=== PATIENT | female | born 1970 | race Caucasian/White ===

== ENCOUNTER → 2016-08-04 | Outpatient (CLI) | payer BC ==
--- NOTE | 2016-08-04 08:53 | MM ---
Reason for exam: clinical finding. Last mammogram was performed 1 year and 6 months ago. History: Patient is postmenopausal. Benign excisional biopsy of the right breast, November 19, 2001. Indicated problem(s): pain in the right breast. Physical Findings: Nurse did not find any significant physical abnormalities on exam. MG 3D Diag Mammo W/Cad FEL[facility] Bilateral CC and MLO view(s) were taken. Prior study comparison: January 20, 2015, bilateral MG screening mammo w CAD. The breast tissue is heterogeneously dense. This may lower the sensitivity of mammography. Chronic nodualrity inferior left breast. Asymmetric density lateral right CC view does not appear to persist on spot tomosynthesis. Otherwise no significant change. These results were verbally communicated with the patient and result sheet given to the patient on 08/04/16. ASSESSMENT: Incomplete: need additional imaging evaluation, BI-RAD 0 RECOMMENDATION: Ultrasound of the right breast. Targeted inferior right breast at site of pain and possible palpable area per the patient and from 6-12 o'clock for the lateral asymmetry. [facility]
--- NOTE | 2016-08-04 08:57 | USB ---
Reason for exam: additional evaluation requested from abnormal screening. History: Patient is postmenopausal. Benign excisional biopsy of the right breast, November 19, 2001. US Breast Limited RT Right breast ultrasound demonstrates no cystic or solid lesion seen. Scanned 3-12 o'clock with attention on the inferior aspect at the site of pain. These results were verbally communicated with the patient and result sheet given to the patient on 08/04/16. ASSESSMENT: Negative, BI-RAD 1 RECOMMENDATION: Routine screening mammogram of both breasts in 1 year. Manage on a clinical basis with regard to any suspicious palpable areas and any breast pain.
== END | disposition home or self-care (01) ==
LOC: RADMAMWWP 07:03
PROVIDERS: ATTEND Obstetrics & Gynecology
DX: N64.4 Mastodynia (principal); R92.8 Other abnormal and inconclusive findings on diagnostic imaging of breast
CPT/HCPCS: 76642; G0204; G0279

== ENCOUNTER → 2019-02-05 | Outpatient (CLI) | payer BC ==
--- NOTE | 2019-02-06 09:21 | MM ---
Reason for exam: screening (asymptomatic). Last mammogram was performed 2 years and 6 months ago. History: Patient is postmenopausal. Benign excisional biopsy of the right breast, November 19, 2001. Physical Findings: A clinical breast exam by your physician is recommended on an annual basis and results should be correlated with mammographic findings. MG Screening Mammo w CAD Bilateral CC and MLO view(s) were taken. Prior study comparison: August 04, 2016, bilateral MG 3d diag mammo w/cad FEL[facility]. January 20, 2015, bilateral MG screening mammo w CAD. The breast tissue is extremely dense which could obscure a lesion on mammography. No suspicious abnormality. No significant changes when compared with prior studies. ASSESSMENT: Negative, BI-RAD 1 RECOMMENDATION: Routine screening mammogram of both breasts in 1 year.
== END | disposition home or self-care (01) ==
LOC: RADMAMWWP 07:35
PROVIDERS: ATTEND Obstetrics & Gynecology
DX: Z12.31 Encounter for screening mammogram for malignant neoplasm of breast (principal); Z80.3 Family history of malignant neoplasm of breast
CPT/HCPCS: 77067

== ENCOUNTER 2019-05-06 08:45 | Emergency (ER) | payer BC ==
--- NOTE | 2019-05-06 09:21 | ED ---
Extremity Problem HPI - General Chief complaint: Extremity Problem,Nontraumatic Stated complaint: rt side ankle swelling Time Seen by Provider: 05/06/19 08:57 Source: patient, RN notes reviewed Mode of arrival: ambulatory Limitations: no limitations - History of Present Illness Initial comments: 48-year-old female presents emergency Department chief complaint of right leg pain, ankle swelling over the last 4 days. Patient states that it does improve overnight and which she elevate, rest and ice. Patient states that she had no known injury. Patient states that the swelling definite worse and certainly with increasing pain. She states is gets red in nature denies fevers or chills denies any history of DVT or PE. Patient denies any prior vascular issues. Patient does state that she is on Evista started this a few weeks ago. - Related Data Home Medications Medication Instructions Recorded Confirmed Biotin 5 mg PO DAILY 05/06/19 05/06/19 Calcium Carbonate [Calcium] 600 mg PO DAILY 05/06/19 05/06/19 Multivitamins, Thera [Multivitamin 1 tab PO DAILY 05/06/19 05/06/19 (formulary)] Raloxifene HCl 60 mg PO DAILY 05/06/19 05/06/19 Previous Rx's Medication Instructions Recorded predniSONE 50 mg PO DAILY #5 tab 05/06/19 Allergies Allergy/AdvReac Type Severity Reaction Status Date / Time No Known Allergies Allergy Verified 05/06/19 09:40 Review of Systems ROS Statement: Those systems with pertinent positive or pertinent negative responses have been documented in the HPI. ROS Other: All systems not noted in ROS Statement are negative. Past Medical History Additional Past Medical History / Comment(s): osteoporosis History of Any Multi-Drug Resistant Organisms: None Reported Past Surgical History: No Surgical Hx Reported Past Psychological History: No Psychological Hx Reported Smoking Status: Current every day smoker Past Alcohol Use History: Occasional Past Drug Use History: None Reported General Exam Limitations: no limitations General appearance: alert, in no apparent distress Head exam: Present: atraumatic, normocephalic, normal inspection Eye exam: Present: normal appearance, PERRL, EOMI. Absent: scleral icterus, conjunctival injection, periorbital swelling ENT exam: Present: normal exam, normal oropharynx, mucous membranes moist Neck exam: Present: normal inspection, full ROM. Absent: tenderness, meningismus, lymphadenopathy Respiratory exam: Present: normal lung sounds bilaterally. Absent: respiratory distress, wheezes, rales, rhonchi, stridor Cardiovascular Exam: Present: regular rate, normal rhythm, normal heart sounds. Absent: systolic murmur, diastolic murmur, rubs, gallop, clicks GI/Abdominal exam: Present: soft, normal bowel sounds. Absent: distended, tenderness, guarding, rebound, rigid Extremities exam: Present: other (Swelling of the right ankle with mild erythema no increased warmth neurovascular intact there is mild calf tenderness.) Skin exam: Present: warm, dry, intact, normal color. Absent: rash Course Vital Signs 05/06/19 08:47 Temperature 98.0 F Pulse Rate 65 Respiratory 17 Rate Blood Pressure 148/62 O2 Sat by Pulse 100 Oximetry Medical Decision Making - Medical Decision Making Ultrasound is negative for acute DVT, x-rays unremarkable. I do feel this is more of an inflammatory arthritic or joint issue. Patient will be started on courses or steroids if she has no improvement she has a follow-up with orthopedics or rheumatology. Disposition Clinical Impression: Right ankle swelling Disposition: HOME SELF-CARE Condition: Stable Instructions (If sedation given, give patient instructions): Swollen Ankle Joint (ED) Additional Instructions: Please return to the Emergency Department if symptoms worsen or any other concerns. Prescriptions: predniSONE 50 mg PO DAILY #5 tab Is patient prescribed a controlled substance at d/c from ED?: No Referrals: None,Stated [Primary Care Provider] - 1-2 days Time of Disposition: 10:50
--- NOTE | 2019-05-06 09:34 | XR ---
EXAMINATION TYPE: XR ankle complete RT DATE OF EXAM: 05/06/2019 CLINICAL HISTORY: Lateral malleolar pain and swelling. No stated injury. TECHNIQUE: Frontal, lateral and oblique images of the left ankle are obtained. COMPARISON: None. FINDINGS: There is no acute fracture/dislocation evident in the left ankle. The ankle mortise appea rs within normal limits. The overlying soft tissue demonstrates mild left ankle soft tissue swelling . No radiopaque foreign body. IMPRESSION: Soft tissue swelling of the left ankle is nonspecific. No acute fracture or dislocation i n the left ankle.
--- NOTE | 2019-05-06 10:10 | US ---
EXAMINATION TYPE: US venous doppler duplex LE RT DATE OF EXAM: 05/06/2019 10:00 AM COMPARISON: NONE CLINICAL HISTORY: leg swelling pain. Right ankle swelling. No hx blood clot. No blood thinners. No leg redness. SIDE PERFORMED: Right TECHNIQUE: The lower extremity deep venous system is examined utilizing real time linear array sonog shavon with graded compression, doppler sonography and color-flow sonography. VESSELS IMAGED: External Iliac Vein (EIV) Common Femoral Vein Deep Femoral Vein Greater Saphenous Vein * Femoral Vein Popliteal Vein Small Saphenous Vein * Proximal Calf Veins (* superficial vessels) Right Leg: Negative for DVT IMPRESSION: 1. No diagnostic evidence of DVT as visualized
[2019-05-06 11:11] VITALS: BP 133/97; PULSE 74; RESP 18; TEMP 97.4
== END 2019-05-06 11:09 | disposition home or self-care (01) ==
LOC: EC 08:45
DX: M25.471 Effusion, right ankle (principal); M79.604 Pain in right leg; M81.0 Age-related osteoporosis without current pathological fracture; F17.200 Nicotine dependence, unspecified, uncomplicated; Z79.899 Other long term (current) drug therapy
CPT/HCPCS: 99284

== ENCOUNTER → 2021-02-11 | Outpatient (CLI) | payer BC ==
--- NOTE | 2021-02-15 10:04 | MM ---
Reason for exam: screening (asymptomatic). Last mammogram was performed 2 years ago. History: Patient is postmenopausal. Benign excisional biopsy of the right breast, November 19, 2001. Physical Findings: A clinical breast exam by your physician is recommended on an annual basis and results should be correlated with mammographic findings. MG 3D Screening Mammo W/Cad Bilateral CC and MLO view(s) were taken. Prior study comparison: February 05, 2019, bilateral MG screening mammo w CAD. August 04, 2016, bilateral MG 3d diag mammo w/cad [facility]. The breast tissue is extremely dense which could obscure a lesion on mammography. There is chronic nodularity in the left breast. No significant changes when compared with prior studies. ASSESSMENT: Benign, BI-RAD 2 RECOMMENDATION: Routine screening mammogram of both breasts in 1 year.
== END | disposition home or self-care (01) ==
LOC: RADMAMWWP 16:11
PROVIDERS: ATTEND Obstetrics & Gynecology
DX: Z12.31 Encounter for screening mammogram for malignant neoplasm of breast (principal); Z80.3 Family history of malignant neoplasm of breast
CPT/HCPCS: 77063; 77067

== ENCOUNTER → 2022-05-17 | Outpatient (CLI) | payer BC ==
--- NOTE | 2022-05-17 11:42 | MM ---
Reason for Exam: Screening (asymptomatic). Last mammogram was performed 1 year(s) and 3 month(s) ago. Patient History: Menarche at age 11. First Full-Term at age 19. Postmenopausal. 11/19/2001, Benign Excisional Biopsy on the right side. Risk Values: Cheryl 5 year model risk: 1.2%. NCI Lifetime model risk: 9.0%. Prior Study Comparison: 08/04/2016 Bilateral Diagnostic Mammogram, [facility] WITH [facility]. 02/05/2019 Bilateral Screening Mammogram, [facility] WITH [facility]. 02/11/2021 Bilateral Screening Mammogram, [facility] WITH [facility]. Tissue Density: The breast tissue is heterogeneously dense. This may lower the sensitivity of mammography. Findings: Analyzed By CAD. Benign-appearing bilateral axillary lymph nodes are redemonstrated. Stable round circumscribed 5 mm mass in the inferior left breast. There is no suspicious new group of microcalcifications or new suspicious mass in either breast. Overall Assessment: Benign, BI-RAD 2 Management: Screening Mammogram of both breasts in 1 year. Some advise bilateral breast ultrasound surveillance of patient's with background dense tissue. A clinical breast exam by your physician is recommended on an annual basis and results should be correlated with mammographic findings. Electronically signed and approved by: Td Rosas M.D.
== END | disposition home or self-care (01) ==
LOC: RADMAMWWP 09:07
PROVIDERS: ATTEND Obstetrics & Gynecology
DX: Z12.31 Encounter for screening mammogram for malignant neoplasm of breast (principal); Z78.0 Asymptomatic menopausal state; Z80.3 Family history of malignant neoplasm of breast; Z98.890 Other specified postprocedural states
CPT/HCPCS: 77063; 77067

== ENCOUNTER → 2023-12-12 | Outpatient (CLI) | payer BC ==
--- NOTE | 2023-12-14 09:16 | MM ---
Reason for Exam: Screening (asymptomatic). Last mammogram was performed 1 year(s) and 7 month(s) ago. Patient History: Menarche at age 11. First Full-Term at age 19. Postmenopausal. Patient has history of breast feeding. 11/19/2001, Benign Excisional Biopsy on the right side. Risk Values: Cheryl 5 year model risk: 1.2%. NCI Lifetime model risk: 8.7%. Prior Study Comparison: 02/05/2019 Bilateral Screening Mammogram, [facility]. 02/11/2021 Bilateral Screening Mammogram, [facility]. 05/17/2022 Bilateral MG 3D screening mammo w/cad, [facility]. Tissue Density: The breasts are heterogeneously dense, which may obscure small masses. Findings: Analyzed By CAD. There is no suspicious group of microcalcifications or new suspicious mass in either breast. Overall Assessment: Benign, BI-RAD 2 Management: Screening Mammogram of both breasts in 1 year. . Patient should continue monthly self-breast exams. A clinical breast exam by your physician is recommended on an annual basis. This exam should not preclude additional follow-up of suspicious palpable abnormalities. Note on Cheryl scores and lifetime risk: 1. A Cheryl score greater than 3% is considered moderate risk. If this is the case, consider specialist referral to assess eligibility for a risk reducing agent. 2. If overall lifetime risk for the development of breast cancer is 20% or higher, the patient may qualify for future screening with alternating mammogram and breast MRI. Electronically signed and approved by: Efrain Ontiveros M.D. [facility]
== END | disposition home or self-care (01) ==
LOC: RADMAMWWP 13:51
PROVIDERS: ATTEND Obstetrics & Gynecology
DX: Z12.31 Encounter for screening mammogram for malignant neoplasm of breast (principal); Z78.0 Asymptomatic menopausal state
CPT/HCPCS: 77063; 77067